=== PATIENT | male | born 1985 | race Caucasian/White ===

== ENCOUNTER 2023-05-09 00:57 | Emergency (ER) | payer MEDICAID ==
[~2023-05-09] VITALS: Ht 188 cm; Wt 79.4 kg
[2023-05-09 01:00] VITALS: BP 121/68; PULSE 92; RESP 16; TEMP 97.4; O2SAT 99
[2023-05-09] MEDS ORDERED: NAPR-54 PO (03:19)
[2023-05-09 03:20] VITALS: BP 121/68; PULSE 92; RESP 16; TEMP 97.4; O2SAT 99
== END 2023-05-09 03:25 | disposition home or self-care (01) ==
LOC: MED 00:57
DX: S43.102A Unspecified dislocation of left acromioclavicular joint, initial encounter (principal); Z79.899 Other long term (current) drug therapy; W19.XXXA Unspecified fall, initial encounter; Y93.89 Activity, other specified; Y92.89 Other specified places as the place of occurrence of the external cause; Y99.8 Other external cause status
CPT/HCPCS: 73030; 99283